=== PATIENT | male | born 1950 | race African-American/Black ===

== ENCOUNTER 2019-09-16 11:33 | Emergency (ER) | payer MEDICARE, MEDICAID ==
[~2019-09-16] VITALS: Ht 172.7 cm; Wt 82.0 kg
[2019-09-16] MEDS ORDERED: LISI40TA4 PO (11:35)
[2019-09-16] MEDS ORDERED: ESMOLOL HCL 10MG/ML 10ML VIAL IV ONE ×2 (11:45→15:00)
[2019-09-16 11:54] VITALS: BP 0/0
[2019-09-16] MEDS ORDERED: EPINEPHRINE 0.1MG/ML (1:10,000) 10ML SYR ONE (11:58)
[2019-09-16] MEDS ORDERED: ALTEPLASE 50MG/VIAL IV ONE (12:00)
== END 2019-09-16 12:00 | disposition expired ==
LOC: ER 11:58
DX: I46.9 Cardiac arrest, cause unspecified (principal); I10 Essential (primary) hypertension; Z79.899 Other long term (current) drug therapy
CPT/HCPCS: 31500; 82962; 92950; 99291; J3490; J2997